=== PATIENT | male | born 1935 | race Caucasian/White ===

== ENCOUNTER 2019-08-30 18:19 | Emergency (ER) | payer MEDICARE, OTHER ==
[~2019-08-30] VITALS: Ht 162.6 cm; Wt 54.4 kg
[~2019-08-30 18:19] MED LIST: ACETAMINOPHEN-1 EAC1 ORAL; AVAPRO300 MG ORAL; CITALOPRAM20 MG/10 M ORAL; CLONAZEPAM0.5 M1 PO; FUROSEMIDE40 MG/5 ML ORAL; LACTULOSE20 GM/301 ORAL; LOSARTAN POTAS100 MG ORAL; MELATONIN5 M5 ORAL; MELOXICAM7.5 MG/5 M ORAL; NORCO 5-325 TA1 EACH ORAL; OMEPRAZOLE40 M1 ORAL; PANTOPRAZOLE SO20 MG ORAL; SIMVASTATIN20 MG ORAL; TERAZOSIN HCL2 MG PO
[2019-08-30 18:25] VITALS: BP 140/76
--- NOTE | 2019-08-30 18:25 | NUR ---
ED Nurse Note: PT brought in by ambulance from [facility] for pain to left groin area x 2weeks.
--- NOTE | 2019-08-30 18:26 | NUR ---
ED Nurse Note: pt noted with rashes to groin area.
--- NOTE | 2019-08-30 18:49 | Emergency Room Report ---
History of Present Illness General Chief Complaint: Pain Source: Patient Present Illness HPI Patient is an 83-year-old male who presents after persistent testicular itchiness. Patient a previous episode similarly in the past. Had noticed increased rash to his inguinal area. Had not been having any fever. Denies any significant pain. Allergies: Coded Allergies: GABAPENTIN (Verified Allergy, Unknown, 08/30/19) LISINOPRIL (Verified Allergy, Unknown, 08/26/15) PENICILLINS (Verified Allergy, Unknown, 08/26/15) COVID-19 Screening Contact w/high risk pt: Yes Recent Travel to affected area: No Experienced COVID-19 symptoms?: No COVID-19 Testing performed [employer]UING: No Patient History Reviewed Nursing Documentation: PMH: Agreed; PSxH: Agreed Nursing Documentation-PMH Past Medical History: No History, Except For Hx Hypertension: Yes Hx Gastrointestinal Problems: Yes - gastric surgery Review of Systems All Other Systems: negative except mentioned in HPI Physical Exam Vital Signs Date Time Temp Pulse Resp B/P (MAP) Pulse Ox O2 Delivery O2 Flow Rate FiO2 08/30/19 18:21 98.4 71 16 147/72 (97) 94 Room Air Sp02 EP Interpretation: reviewed, normal General Appearance: normal inspection, well appearing, no apparent distress, alert, GCS 15 Head: atraumatic ENT: normal ENT inspection, hearing grossly normal, normal voice Neck: normal inspection, full range of motion, supple, no bony tend Respiratory: normal inspection, lungs clear, normal breath sounds, no respiratory distress, no retraction, no wheezing Cardiovascular #1: regular rate, rhythm, no edema Gastrointestinal: normal inspection, normal bowel sounds, non tender, soft, no guarding, no hernia Genitourinary: no CVA tenderness Musculoskeletal: normal inspection, back normal, normal range of motion Neurologic: alert, motor strength/tone normal, monorail helper III-XII nml as tested, oriented x3, responsive, speech normal, normal inspection Psychiatric: normal inspection, judgement/insight normal, mood/affect normal Skin: other - Scrotal with minimal erythema without any evidence of induration or thickening with satellite lesions consistent with a candidal infection. Medical Decision Making Diagnostic Impression: Primary Impression: Candidiasis ER Course Patient presented for testicular discomfort. Differential diagnosis include was not limited to yeast infection, Td's gangrene, testicular torsion among others. Patient has a benign exam and does not appear to require any imaging or laboratory testing at this time. Patient's testicles appear to have a normal lie and patient does not show any evidence of acute infection at this time. 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 Patient be sent back to his facility. Patient additionally has some chronic right shoulder pain which does not appear to have any new injuries recently. Patient will be sent back to his facility via private ambulance. Dr. Gaines was contacted and appears stable for discharge back to facility. Labs Test 08/30/19 19:21 Urine Color Yellow Urine Appearance Clear Urine pH 6.5 (4.5-8.0) Urine Specific [place] 1.010 (1.005-1.035) Urine Protein Negative (NEGATIVE) Urine Glucose (UA) Negative (NEGATIVE) Urine Ketones Negative (NEGATIVE) Urine Blood Negative (NEGATIVE) Urine Nitrite Negative (NEGATIVE) Urine Bilirubin Negative (NEGATIVE) Urine Urobilinogen Normal MG/DL (0.0-1.0) Urine Leukocyte Esterase Negative (NEGATIVE) Last Vital Signs Date Time Temp Pulse Resp B/P (MAP) Pulse Ox O2 Delivery O2 Flow Rate FiO2 08/30/19 18:25 98.4 84 18 140/76 96 Room Air Status: improved Disposition: SNF Condition: Stable Scripts Nystatin* (NYSTATIN*) 15 Gm Cream..g. 1 APPLIC TOPIC THREE TIMES A DAY, #30 GM Prov: Peter Erickson MD 08/30/19 Peter Erickson MD Aug 30, 2019 18:49
--- NOTE | 2019-08-30 19:20 | NUR ---
ED Nurse Note: pt received from [facility] in stable condition. pt was able to provide urine sample, urine obtained and sent to lab
[2019-08-30] MEDS ORDERED: NYSTATIN15 GM TOPIC (19:45)
--- NOTE | 2019-08-30 19:49 | NUR ---
Spoke with Vicki at [facility], aware of patient going back. Spoke with Sadiq at [facility] transport [id number].
[2019-08-30 20:31] LABS: APPEARANCE,URINE CLEAR; COLOR,URINE YELLOW
[2019-08-30 20:32] LABS: BILIRUBIN, URINE NEGATIVE (NEGATIVE); GLUCOSE, URINE (UA) NEGATIVE (NEGATIVE); KETONES,URINE NEGATIVE (NEGATIVE); LEUKOCYTE ESTERASE ,URINE NEGATIVE (NEGATIVE); NITRITE,URINE NEGATIVE (NEGATIVE); PH,URINE 6.5 (4.5-8.0); PROTEIN,URINE NEGATIVE (NEGATIVE); UROBILINOGEN,URINE NORMAL MG/DL (0.0-1.0)
--- NOTE | 2019-08-30 20:45 | NUR ---
ED Nurse Note: pt is resting in bed in no acute distress is noted at this time. will prepare pt for d/c, pending transportation
--- NOTE | 2019-08-30 21:23 | NUR ---
Spoke with Nathan at [facility]-another 45 min delay.
[2019-08-30 22:30] VITALS: BP 132/75
--- NOTE | 2019-08-30 22:43 | NUR ---
ER DISCHARGE NOTE: Patient is cleared to be discharged per ERMD, pt is aox4, on room air, with stable vital signs. pt was given dc and prescription instructions, pt was able to verbalize understanding, pt id band removed. patient left with [facility] [address] ems back to snf with all belongings.
[2019-08-30 22:45] VITALS: BP 132/75
== END 2019-08-30 22:43 ==
LOC: EDBD 18:19 → EMR 19:22
DX: B37.9 Candidiasis, unspecified (principal); Z88.0 Allergy status to penicillin; Z88.8 Allergy status to other drugs, medicaments and biological substances; I10 Essential (primary) hypertension
CPT/HCPCS: 81003; 99283